=== PATIENT | male | born 1950 | race Caucasian/White ===

== ENCOUNTER 2021-02-06 11:33 | Emergency (ER) | payer OTHER ==
[2021-02-06 12:01] VITALS: BMI 28.7
[2021-02-06] MEDS ORDERED: NIFEdipine E.R 60 MG TABLET PO ONE (13:12)
[2021-02-06] MEDS ORDERED: CASIRIVIMAB/IMDEVIMAB 10 ML in SODIUM CHLORIDE 100 ML IVPB ONE (13:14)
[2021-02-06] MEDS ORDERED: ACETAMINOPHEN 500 MG TABLET (FP) PO ONE (13:16)
[2021-02-06] MEDS ORDERED: ACETAMINOPHEN 325 MG TABLET (FP) ONE (13:48)
[2021-02-06] MEDS ORDERED: NIFEdipine E.R. 30 MG TABLET ONE (13:49)
[2021-02-06 14:14] LABS: HEMATOCRIT 45.9 % (35.4-49); HEMOGLOBIN 15.8 GM/dL (11.7-16.9); MCH 28.5 pg (25.7-33.7); MCHC 34.5 g/dl (32.0-35.9); MEAN CELL VOLUME 82.6 fl (80-96); MEAN PLT VOLUME 8.3 fl (7.5-11.1); PLATELET COUNT 168 10^3/uL (134-434); RBC 5.55 M/mm3 (4.00-5.60); RDW 13.9 % (11.9-15.9); WHITE BLOOD COUNT 8.3 K/mm3 (4.0-10.0)
[2021-02-06 14:36] LABS: ALBUMIN 3.8 g/dl (3.4-5.0); BLOOD UREA NITROGEN 12.1 mg/dL (7-18); CALCIUM 8.5 mg/dL (8.5-10.1)
[2021-02-06 14:40] LABS: CREATININE 0.9 mg/dL (0.55-1.3)
[2021-02-06 14:41] LABS: BILIRUBIN,TOTAL 0.7 mg/dL (0.2-1); TOT PROT 7.7 g/dl (6.4-8.2)
[2021-02-06 15:49] VITALS: TEMP 99.8
[2021-02-06 15:56] VITALS: BP 160/87; PULSE 89
== END 2021-02-06 16:57 | disposition home or self-care (01) ==
LOC: JCOVINFU 11:33 → JER 11:33 → JCOVINFU 16:57
DX: U07.1 COVID-19 (principal); I10 Essential (primary) hypertension
CPT/HCPCS: 36415; 71046-TC-FY; 80053; 85027; 93005; 93010; 99284-25; Q0240